=== PATIENT | female | born 1980 | race African-American/Black ===

== ENCOUNTER 2020-03-19 18:37 | Emergency (ER) | payer OTHER ==
[~2020-03-19] VITALS: Ht 165.1 cm; Wt 81.6 kg
[2020-03-19] MEDS ORDERED: KETOROLAC TROMETH 60MG/2ML VIAL IM ONE (20:15)
[2020-03-19 20:44] VITALS: BP 122/78
== END 2020-03-19 20:58 | disposition home or self-care (01) ==
LOC: ER 18:37
DX: S46.911A Strain of unspecified muscle, fascia and tendon at shoulder and upper arm level, right arm, initial encounter (principal); M62.838 Other muscle spasm; Z91.040 Latex allergy status; Z91.041 Radiographic dye allergy status; V49.9XXA Car occupant (driver) (passenger) injured in unspecified traffic accident, initial encounter; Y93.I9 Activity, other involving external motion; Y92.410 Unspecified street and highway as the place of occurrence of the external cause; Y99.8 Other external cause status
CPT/HCPCS: 72040; 72070; 73030; 96372; 99284; J1885

== ENCOUNTER → 2020-03-21 | Emergency (ER) | payer OTHER ==
[~2020-03-21] VITALS: Ht 165.1 cm; Wt 81.6 kg
[~2020-03-21] MED LIST: KETOROLAC TROMETH 60MG/2ML VIAL IM ONE
[2020-03-21 20:15] VITALS: BP 126/87
== END | disposition home or self-care (01) ==
LOC: ER 18:23
DX: S16.1XXA Strain of muscle, fascia and tendon at neck level, initial encounter (principal); V49.9XXA Car occupant (driver) (passenger) injured in unspecified traffic accident, initial encounter; Y93.89 Activity, other specified; Y92.89 Other specified places as the place of occurrence of the external cause; Y99.8 Other external cause status
CPT/HCPCS: 70450; 96372; 99284; J1885